=== PATIENT | female | born 1990 | race African-American/Black ===

== ENCOUNTER 2018-05-19 21:23 | Emergency (ER) | payer SELFPAY ==
[~2018-05-19] VITALS: Ht 157.5 cm; Wt 63.5 kg
--- OUTSIDE RECORDS SUMMARY | 2018-05-19 21:25 | XMS REPORT ---
Author [facility] Address Unknown Phone Unavailable Care Team Providers Care Senior Consumer Insights Consultant Name Role Phone UNKNOWN, REFFERING PP Unavailable CAMERON CM Unavailable Unavailable Payers Payer Name Policy Type Policy Number Effective Date Expiration Date Problems This patient has no known problems. Allergies, Adverse Reactions, Alerts Allergy Name Allergy Type Status Severity Reaction(s) Onset Date Inactive Date Treating Clinician Comments No Known Allergies DA Active U 2015-03-29 00:00:00 Medications This patient has no known medications. Encounters Start Date/Time End Date/Time Encounter Type Admission Type Attending Clinicians Care Facility Care Department Encounter ID 2016-11-17 00:40:00 2016-11-17 00:40:00 Emergency [facility] [id number] Results Test Description Test Time Test Comments Text Results Atomic Results Result Comments WET PREP 2017-10-08 20:27:00 WBC WET PREP (BEAKER) (test oetg=842) Moderate white blood cells seen CLUE CELLS (BEAKER) (test krqc=735) Few clue cells seen YEAST WET PREP (BEAKER) (test mixg=556) No budding yeast seen TRICH WET PREP (BEAKER) (test wvhl=122) No Trichomonas seen BACT WET PREP (BEAKER) (test agcs=885) Many bacteria seen URINALYSIS W/ [id number] 20:24:00* Test Item Value Reference Range Comments COLOR (BEAKER) (test aktx=357) Yellow CLARITY (BEAKER) (test ibmp=078) Clear SPECIFIC GRAVITY UA (BEAKER) (test odhp=194) 1.010 1.001-1.035 PH UA (BEAKER) (test kslf=225) 7.0 5.0-8.0 PROTEIN UA (BEAKER) (test gegm=207) Negative Negative GLUCOSE UA (BEAKER) (test wkxo=618) Negative Negative KETONES UA (BEAKER) (test kamx=636) Negative Negative BILIRUBIN UA (BEAKER) (test khcn=401) Negative Negative BLOOD UA (BEAKER) (test rjcy=617) Negative Negative NITRITE UA (BEAKER) (test gsfl=896) Negative Negative LEUKOCYTE ESTERASE UA (BEAKER) (test fkem=110) Negative Negative UROBILINOGEN UA (BEAKER) (test niyd=580) 1.0 mg/dL 0.2-1.0 BACTERIA (BEAKER) (test zvtc=850) Moderate RBC UA-MANUAL (BEAKER) (test ffch=3241) <5 /HPF WBC UA-MANUAL (BEAKER) (test dnmm=4855) <5 /HPF SQUAMOUS EPITHELIAL MANUAL (BEAKER) (test budb=3844) 10-20 /HPF Clue cells seen SOURCE(BEAKER) (test ezeh=0314) SCREEN, [id number] 20:21:00* Test Item Value Reference Range Comments TEST URINE (BEAKER) (test iohu=191) Negative
--- OUTSIDE RECORDS SUMMARY | 2018-05-19 21:25 | XMS REPORT | Clinical Summary ---
Author Author [facility]IAN [facility] Address Unknown Phone Unavailable Care Team Providers Care Magneto Repairer Name Role Phone Sharpless PCP Allergies No Known Allergies Medications End Date Status Medication Sig Dispensed Refills Start Date Active metroNIDAZOLE (FLAGYL) Take 1 tablet 20 tablet 0 500 MG tablet (500 mg 8 total) by mouth 2 (two) times daily. 10/08/2017 Discontinued metroNIDAZOLE (FLAGYL) Take 1 tablet 7 tablet 0 500 MG tablet (500 mg 5 total) by mouth 2 (two) times daily. Active Problems Not on file Encounters Care Team Description Date Type Specialty Stephanie Burnham MD Bacterial vaginitis (Primary Dx); Possible exposure to STD 10/08/2017 Emergency Emergency Medicine after 05/18/2017 Social History Date Tobacco Use Types Packs/Day Years Used Never Smoker Alcohol Use Drinks/Week oz/Week Comments No Sex Assigned at Date Recorded Not on file Industry Job Start Date Occupation Not on file Not on file Not on file Travel End Travel History Travel Start No recent travel history available. Last Filed Vital Signs Time Taken Vital Sign Reading 10/08/2017 7:45 PM CDT Blood Pressure 118/81 10/08/2017 7:45 PM CDT Pulse 72 10/08/2017 7:45 PM CDT Temperature 37.2 C (98.9 F) 10/08/2017 7:45 PM CDT Respiratory Rate 14 10/08/2017 7:45 PM CDT Oxygen Saturation 97% - Inhaled Oxygen - Concentration 10/08/2017 7:45 PM CDT Weight 63.5 kg (140 lb) - Height - 10/08/2017 7:45 PM CDT Body Mass Index 26.47 Plan of Treatment Not on file Procedures Comments Procedure Name Priority Date/Time Associated Diagnosis WET PREP STAT 10/08/2017 8:20 PM CDT STD PANEL - CT/GC RNA STAT 10/08/2017 8:20 PM CDT SCREEN, URINE STAT 10/08/2017 8:04 PM CDT URINALYSIS W/ MICROSCOPIC STAT 10/08/2017 8:04 PM CDT after 05/18/2017 Results * STD Panel - CT/GC RNA (10/08/2017 8:20 PM CDT) C. trachomatis RNA, TMA NOT DETECTED [facility] N. gonorrhoeae RNA, TMA NOT DETECTED [facility] Comment: INCORPORATED REFERENCE RANGE:NOT DETECTED This test was performed using the APTIMA(R) COMBO2 Assay (GENTheFormToolPROBE). Specimen Genital - Cervix, Endocervical Narrative Performed At Performing Lab [facility] [address] [place] [id number] Lelo Beckett MD Performing Organization Address City/[facility]/Zipcode Phone Number [facility], [address] [place], [place] [facility] [address] * Wet prep (10/08/2017 8:20 PM CDT) WBC - wet prep Moderate white blood cells [facility], [facility] Clue cells - wet prep Few clue cells seen [facility], [facility] Yeast - wet prep No budding yeast seen [facility] Trichomonas - wet prep No Trichomonas seen [facility] Bacteria - wet prep Many bacteria seen [facility], [facility] Specimen Genital - Cervix, Endocervical Performing Organization Address City/[facility]/Zipcode Phone Number [facility] [address] [place] [address] [facility] * Screen, urine (10/08/2017 8:04 PM CDT) Preg Test, Ur Negative [facility] Specimen Urine - Urine, Voided Performing Organization Address City/State/Zipcode Phone Number [facility] [address] [place] [address] [facility] * Urinalysis w/Microscopic (10/08/2017 8:04 PM CDT) Color, UA Yellow [facility] Clarity, UA Clear [facility] Specific [place], UA 1.010 1.001 - 1.035 [facility] pH, UA 7.0 5.0 - 8.0 [facility] Protein, UA Negative Negative [facility] Glucose, UA Negative Negative [facility] Ketones, UA Negative Negative [facility] Bilirubin, UA Negative Negative [facility] Blood, UA Negative Negative [facility] Nitrite, UA Negative Negative [facility] Leukocytes, UA Negative Negative [facility] Urobilinogen, UA 1.0 0.2 - 1.0 mg/dL [facility] Bacteria, UA Moderate [facility] RBC, UA <5 /HPF [facility], [facility] WBC, UA <5 /HPF [facility], [facility] SQUAMOUS EPITHELIAL 10-20Comment: Clue cells seen /HPF [facility], [facility] Specimen Source [facility], [facility] Specimen Urine - Urine, Voided Performing Organization Address City/State/Zipcode Phone Number [facility] [address] [place] [address] [facility] after 05/18/2017
--- OUTSIDE RECORDS SUMMARY | 2018-05-19 21:25 | XMS REPORT | Clinical Summary ---
Author Author [facility] Address Unknown Phone Unavailable Care Team Providers Care Shaper Setter Name Role Phone System, Provider Not In MD PCP Unavailable Allergies No Known Allergies Medications Not on file Active Problems Not on file Social History Date Tobacco Use Types Packs/Day Years Used Never Smoker Tobacco Cessation: Counseling Given: No Alcohol Use Drinks/Week oz/Week Comments Yes Sex Assigned at Date Recorded Not on file Industry Job Start Date Occupation Not on file Not on file Not on file Travel End Travel History Travel Start No recent travel history available. Last Filed Vital Signs Not on file Plan of Treatment Not on file Results Not on fileafter 05/18/2017 Insurance Payer Benefit Subscriber ID Type Phone Address Plan / Group [facility] [facility] Advance Directives Patient has advance care planning documents on file. For more information, ladarius santos contact: [place] [address]
[2018-05-19 22:24] LABS: CLARITY,URINE CLEAR (CLEAR); COLOR,URINE YELLOW (YELLOW)
[2018-05-19 22:25] LABS: BILIRUBIN,URINE NEGATIVE (NEGATIVE); KETONES,URINE NEGATIVE (NEGATIVE); LEUKOCYTE ESTERASE ,URINE TRACE (NEGATIVE); NITRITE,URINE NEGATIVE (NEGATIVE); PROTEIN,URINE DIPSTICK NEGATIVE (NEGATIVE); URINE UROBILINOGEN 0.2 mg/dL (0.2 - 1)
[2018-05-19 23:04] LABS: BACTERIA,URINE FEW /HPF; EPITHELIAL CELLS,URINE FEW /LPF; RBC,URINE 0-5 /HPF (0-5)
[2018-05-19 23:11] LABS: PREGNANCY TEST, URINE NEGATIVE (NEGATIVE)
== END 2018-05-19 22:56 | disposition short-term general hospital (02) ==
LOC: ER 21:23
DX: R10.9 Unspecified abdominal pain (principal)
CPT/HCPCS: 81001; 81025